=== PATIENT | female | born 1990 | race Two or more races ===

== ENCOUNTER → 2024-05-24 | Outpatient (CLI) | payer OTHER | LOC: M EKG 09:22 | PROVIDERS: ATTEND Obstetrics & Gynecology | DX: I10 Essential (primary) hypertension (principal); O99.211 Obesity complicating pregnancy, first trimester; Z3A.12 12 weeks gestation of pregnancy ==

== ENCOUNTER → 2024-06-03 | Outpatient (CLI) | payer OTHER | LOC: M CARPUL 09:22 → EDUNIT# 09:30 | PROVIDERS: ATTEND Obstetrics & Gynecology | DX: I10 Essential (primary) hypertension (principal); O99.211 Obesity complicating pregnancy, first trimester; Z3A.12 12 weeks gestation of pregnancy ==

== ENCOUNTER → 2024-10-04 | Outpatient (CLI) | payer OTHER ==
[2024-10-04 12:53] LABS: HEMATOCRIT 32.6 % (36.0-47.0); HEMOGLOBIN 10.5 g/dl (12.0-15.5); MEAN CORPUSCULAR HEMOGLOBIN 27.3 pg (27.0-33.0); MEAN CORPUSCULAR HGB CONC 32.2 g/dl (32.0-36.5); MEAN CORPUSCULAR VOLUME 84.7 fl (80.0-96.0); PLATELET COUNT, AUTOMATED 123 10^3/uL (150-450); RED BLOOD COUNT 3.85 10^6/uL (4.00-5.40); WHITE BLOOD COUNT 11.1 10^3/uL (4.0-10.0)
[2024-10-04 13:15] LABS: TOTAL PROTEIN,RANDOM URINE 17.8 MG/DL (0.0-14.0)
[2024-10-04 13:18] LABS: CREATININE,RANDOM URINE 78.6 MG/DL
[2024-10-04 13:20] LABS: URIC ACID 3.9 MG/DL (3.1-7.8)
[2024-10-04 13:22] LABS: LDH LACTATE DEHYDROGENASE 138 U/L (120-246)
[2024-10-04 13:23] LABS: ALT/SGPT 11 U/L (7.0-40); AST/SGOT < 8 U/L (<34); BILIRUBIN,TOTAL 0.4 MG/DL (0.3-1.2); CREATININE FOR GFR 0.43 MG/DL (0.55-1.30); GLOMERULAR FILTRATION RATE > 60.0 (>60)
== END ==
LOC: M PLALAB 11:20
PROVIDERS: ATTEND Specialist
DX: O16.3 Unspecified maternal hypertension, third trimester (principal); Z3A.00 Weeks of gestation of pregnancy not specified

== ENCOUNTER → 2024-11-04 | Outpatient (REF) | payer OTHER | LOC: M PLALAB 16:19 | PROVIDERS: ATTEND Obstetrics & Gynecology | DX: Z36.89 Encounter for other specified antenatal screening (principal); Z3A.36 36 weeks gestation of pregnancy ==

== ENCOUNTER 2024-11-12 12:07 | Inpatient (IN) | payer OTHER ==
[2024-11-12] VITALS (13 sets, daily range): BP systolic 136–171; BP diastolic 63–86; O2SAT 96
[~2024-11-12] VITALS: Ht 180.3 cm; Wt 178.8 kg
[2024-11-12] MEDS ORDERED: PRENTAB9 PO (12:33)
[2024-11-12] MEDS ORDERED: FERR325T19 PO (12:33)
[2024-11-12] MEDS ORDERED: LABE20TAB PO (12:33)
[2024-11-12] MEDS ORDERED: ASPI81CH48 PO (12:33)
[2024-11-12] MEDS ORDERED: HOME MED LIST COMPLETE! XX SCH (12:35)
[2024-11-12] MEDS ORDERED: OXYTOCIN INJ 10UNITS/ML 1ML VIAL IM PRN (12:45)
[2024-11-12] MEDS ORDERED: LIDOCAINE 1% MDV 20ML VIAL INFIL PRN (12:45)
[2024-11-12] MEDS ORDERED: CARBOPROST TROMETHAMINE 250 MCG/ML AMP IM PRN (12:45)
[2024-11-12] MEDS ORDERED: TRANEXAMIC ACID INJection 1,000 MG in NS 100 ML IV PRN (12:45)
[2024-11-12 13:38] LABS: HEMATOCRIT 35.4 % (36.0-47.0); HEMOGLOBIN 11.3 g/dl (12.0-15.5); MEAN CORPUSCULAR HEMOGLOBIN 27.3 pg (27.0-33.0); MEAN CORPUSCULAR HGB CONC 31.9 g/dl (32.0-36.5); MEAN CORPUSCULAR VOLUME 85.5 fl (80.0-96.0); PLATELET COUNT, AUTOMATED 115 10^3/uL (150-450); RED BLOOD COUNT 4.14 10^6/uL (4.00-5.40); WHITE BLOOD COUNT 9.8 10^3/uL (4.0-10.0)
[2024-11-12 13:59] LABS: URIC ACID 4.2 MG/DL (3.1-7.8)
[2024-11-12 14:01] LABS: LDH LACTATE DEHYDROGENASE 126 U/L (120-246)
[2024-11-12 14:02] LABS: ALT/SGPT 12 U/L (7.0-40); AST/SGOT < 8 U/L (<34); BILIRUBIN,TOTAL 0.5 MG/DL (0.3-1.2); CREATININE FOR GFR 0.44 MG/DL (0.55-1.30); GLOMERULAR FILTRATION RATE > 60.0 (>60)
[2024-11-12] MEDS: miSOPROStol 50MCG 1/2 TABLET PO SCH (14:05)
[2024-11-12 14:22] LABS: TOTAL PROTEIN,RANDOM URINE 51.5 MG/DL (0.0-14.0)
[2024-11-12 14:27] LABS: CREATININE,RANDOM URINE 171.6 MG/DL
[2024-11-12 14:43] LABS: HEPATITIS C VIRUS ABY INDEX < 0.02 INDEX (<0.8)
[2024-11-12] MEDS: LABETALOL 200 MG TAB PO SCH (21:09)
[2024-11-13] VITALS (31 sets, daily range): BP systolic 127–184; BP diastolic 62–88
[2024-11-13] MEDS: OXYTOCIN DRIP 30 UNITS in IV 1 EA IV SCH (13:52)
[2024-11-13] MEDS: OXYTOCIN DRIP 30 UNITS in IV 1 EA IV PRN (13:52)
[2024-11-13] MEDS ORDERED: LABETALOL 100MG/20ML VIAL As Ordered ONE (18:22)
[2024-11-13] MEDS: LABETALOL 100MG/20ML VIAL IV STA (20:14)
[2024-11-13] MEDS ORDERED: PROMETHAZINE 25MG/ML 1ML VIAL IV ONE (21:00)
[2024-11-13] MEDS: LR 1,000 ML IV SCH (21:26)
[2024-11-13] MEDS: PROMETHAZINE 25MG/ML 1ML VIAL IM ONE (22:07)
[2024-11-13] MEDS: MORPHINE 10 MG/ML 1ML VIAL SC ONE (22:08)
[2024-11-13] MEDS: MORPHINE 10 MG/ML 1ML VIAL IV ONE (22:09)
[2024-11-14] VITALS (32 sets, daily range): BP systolic 119–183; BP diastolic 60–92; O2SAT 97–98
[2024-11-14] MEDS: LACTATED RINGER'S 1000 ML IV STA (13:28)
[2024-11-14] MEDS ORDERED: LR 1,000 ML IV SCH (13:30)
[2024-11-14] MEDS ORDERED: ceFAZolin SOD 3 GM IV Place Holder IV ONE (13:30)
[2024-11-14] MEDS: ceFAZolin SOD 1 GM in DEXTROSE 5% (D5W) ADV/MINI-BAG 50 ML IV ONE (14:54)
[2024-11-14] MEDS: ceFAZolin SOD 2 GM in IV 1 EA IV ONE (14:54)
[2024-11-14] MEDS: AZITHROMYCIN INJ 500 MG, VIAL MATE ADAPTER 1 EACH in NS 250 ML IV ONE (14:54)
[2024-11-14] MEDS: BICITRA 30ML SOLN UDC PO ONE (14:55)
[2024-11-14] MEDS ORDERED: ONDANSETRON 4MG 2ML VIAL As Ordered ONE (15:20)
[2024-11-14] MEDS ORDERED: ACETAMINOPHEN 1000MG/100ML IV BAG As Ordered ONE (15:20)
[2024-11-14] MEDS ORDERED: MORPHINE PRES-FREE INJ 10 MG/10 ML VIAL As Ordered ONE (15:23)
[2024-11-14] MEDS ORDERED: PHENYLephrine 500MCG 5ML (100MCG/ML) SYRINGE As Ordered ONE (16:42)
[2024-11-14] MEDS ORDERED: KETOROLAC 60MG 2ML VIAL As Ordered ONE (16:43)
[2024-11-14 17:06] LABS: CORD GAS ABE A -3.6; CORD GAS O2 SAT A 58.1 %; CORD GAS PCO2 A 60.7 mmHg; CORD GAS PH A 7.233 UNITS; CORD GAS PO2 A 25.6 mmHg; CORD GAS SBC A 20.5 MMOL/L; CORD GAS TCO2 A 26.9 MMOL/L
[2024-11-14 17:07] LABS: CORD GAS ABE V -0.9; CORD GAS PCO2 V 46.1 mmHg; CORD GAS PH V 7.352 UNITS; CORD GAS PO2 V 58.3 mmHg; CORD GAS SBC V 23.6 MMOL/L; CORD GAS TCO2 V 26.4 MMOL/L
[2024-11-14] MEDS ORDERED: SIMETHICONE 80MG CHEW TAB PO PRN (17:20)
[2024-11-14] MEDS ORDERED: DOCUSATE SODIUM 100MG CAPSULE PO PRN (17:20)
[2024-11-14] MEDS ORDERED: ONDANSETRON 4MG 2ML VIAL IV PRN (17:20)
[2024-11-14] MEDS ORDERED: RHOGAM 300MCG (1500IU) INJ IM SCH (17:20)
[2024-11-14] MEDS ORDERED: diphenhydrAMINE 50MG/ML VIAL IV PRN (17:30)
[2024-11-14] MEDS ORDERED: **NOTE PATIENT COMMENT** MISC XX SCH (17:30)
[2024-11-14] MEDS: SLF 3 ML SYR IV SCH (17:30)
[2024-11-14] MEDS ORDERED: NALOXONE INJ 0.4MG/1ML VIAL IV PRN ×2 (17:30)
[2024-11-14] MEDS ORDERED: MORPHINE 2 MG/ML 1ML VIAL IV PRN (17:30)
[2024-11-14] MEDS ORDERED: METOCLOPRAMIDE INJ 10MG/2ML VIAL IV PRN (17:30)
[2024-11-14] MEDS: LR 1,000 ML IV SCH (17:30)
[2024-11-14] MEDS ORDERED: fentaNYL 100 MCG/2 ML INJECTION As Ordered ONE (17:37)
[2024-11-14] MEDS ORDERED: OXYTOCIN 30UNITS IN 0.9% NaCl 500ML IV BAG As Ordered ONE (17:38)
[2024-11-14] MEDS: OXYTOCIN DRIP 30 UNITS in IV 1 EA IV SCH (17:40)
[2024-11-14] MEDS: fentaNYL 100 MCG/2 ML INJECTION IV PRN (17:41)
[2024-11-14] MEDS ORDERED: oxyCODONE 5MG TAB As Ordered ONE (18:20)
[2024-11-14] MEDS: oxyCODONE 5MG TAB PO PRN (18:21)
[2024-11-14] MEDS: LABETALOL 200 MG TAB PO SCH (20:50)
[2024-11-14] MEDS ORDERED: UNRESOLVED CLARIFICATION ENTRY XX SCH (22:00)
[2024-11-14] MEDS: KETOROLAC 30 MG/ML 1ML VIAL IV SCH (22:32)
[2024-11-15] VITALS (7 sets, daily range): BP systolic 115–134; BP diastolic 53–71; TEMP 97.4; O2SAT 97–99
[2024-11-15 06:52] LABS: HEMATOCRIT 28.6 % (36.0-47.0); HEMOGLOBIN 9.2 g/dl (12.0-15.5); MEAN CORPUSCULAR HEMOGLOBIN 27.2 pg (27.0-33.0); MEAN CORPUSCULAR HGB CONC 32.2 g/dl (32.0-36.5); MEAN CORPUSCULAR VOLUME 84.6 fl (80.0-96.0); PLATELET COUNT, AUTOMATED 103 10^3/uL (150-450); RED BLOOD COUNT 3.38 10^6/uL (4.00-5.40); WHITE BLOOD COUNT 10.6 10^3/uL (4.0-10.0)
[2024-11-15] MEDS: PRENATAL VITAMINS CHEWABLE TABLET PO SCH (09:24)
[2024-11-15] MEDS: ENOXAPARIN 40MG/0.4ML SYRINGE (J1650 PER 10MG) SC SCH (09:25)
[2024-11-15] MEDS: PERCOCET 5MG/325MG TAB PO PRN ×2 (14:13→23:14)
[2024-11-15] MEDS: IBUPROFEN 800 MG TAB PO SCH (18:36)
[2024-11-16 02:00] VITALS: BP 135/65; O2SAT 98
[2024-11-16 06:00] VITALS: BP 135/84; O2SAT 99
[2024-11-16] MEDS: MEASLES,MUMPS,RUBELLA VACCINE INJ (MMR-II) SC.IMMUN ONE (09:00)
[2024-11-16 10:00] VITALS: BP 147/73; O2SAT 97
[2024-11-16 10:35] VITALS: BP 145/72
[2024-11-16 14:00] VITALS: BP 121/67; O2SAT 99
[2024-11-16] MEDS ORDERED: OXYC1TAB23 PO (15:09)
[2024-11-16] MEDS ORDERED: IBUP80TA PO (15:09)
[2024-11-16] MEDS ORDERED: COLA100C5 PO (15:09)
[2024-11-16 21:24] VITALS: BP 144/74; O2SAT 99
[2024-11-17 06:00] VITALS: BP 137/65; O2SAT 98
[2024-11-17 07:08] LABS: HEMATOCRIT 26.9 % (36.0-47.0); HEMOGLOBIN 8.7 g/dl (12.0-15.5); MEAN CORPUSCULAR HEMOGLOBIN 27.8 pg (27.0-33.0); MEAN CORPUSCULAR HGB CONC 32.3 g/dl (32.0-36.5); MEAN CORPUSCULAR VOLUME 85.9 fl (80.0-96.0); PLATELET COUNT, AUTOMATED 105 10^3/uL (150-450); RED BLOOD COUNT 3.13 10^6/uL (4.00-5.40); WHITE BLOOD COUNT 8.8 10^3/uL (4.0-10.0)
[2024-11-17 09:28] VITALS: BP 137/80
[2024-11-17 18:00] VITALS: BP 142/69; O2SAT 99
[2024-11-17 18:40] VITALS: BP 141/68
== END 2024-11-17 18:39 | disposition home or self-care (01) | DRG 788 ==
LOC: M LDI 12:07 → M OBS 11-14 18:45
PROVIDERS: ADMIT Advanced Practice Midwife; ATTEND Specialist
PROC: 3E0P7GC Introduction of Other Therapeutic Substance into Female Reproductive, Via Natural or Artificial Opening (ICD-10-PCS; 2024-11-12)
PROC: 10D00Z1 Extraction of Products of Conception, Low, Open Approach (ICD-10-PCS; principal; 2024-11-14 12:51)
DX: O10.02 Pre-existing essential hypertension complicating childbirth (principal); Z3A.37 37 weeks gestation of pregnancy; O99.214 Obesity complicating childbirth; E66.01 Morbid (severe) obesity due to excess calories; O62.0 Primary inadequate contractions; Z37.0 Single live birth

== ENCOUNTER → 2025-01-11 | Outpatient (CLI) | payer OTHER ==
[~2025-01-11] MED LIST: ASPI81CH48 PO; COLA100C5 PO; FERR325T19 PO; IBUP80TA PO; LABE20TAB PO; OXYC1TAB23 PO; PRENTAB9 PO
[2025-01-11 14:33] LABS: HEMOGLOBIN 12.6 g/dl (12.0-15.5); MEAN CORPUSCULAR HEMOGLOBIN 26.8 pg (27.0-33.0); MEAN CORPUSCULAR HGB CONC 32.3 g/dl (32.0-36.5); PLATELET COUNT, AUTOMATED 177 10^3/uL (150-450); WHITE BLOOD COUNT 8.1 10^3/uL (4.0-10.0)
== END ==
LOC: M PLALAB 10:44
PROVIDERS: ATTEND Specialist
DX: N92.6 Irregular menstruation, unspecified (principal)